=== PATIENT | male | born 1980 ===

== ENCOUNTER 2017-07-13 22:16 | Emergency (ER) | payer OTHER ==
[2017-07-13 23:58] VITALS: RESP 18
[2017-07-14 00:03] LABS: BASO % 0.5 % (0.0-2.0); EOS # 0.1 K/uL (0.0-0.7); EOS % 0.8 % (0.0-4.0); HEMATOCRIT 40.6 % (35.0-51.0); LYMPH # 1.4 K/uL (1.0-4.3); LYMPH % 18.1 % (20.0-40.0); MEAN CELL VOLUME 91.6 fl (80.0-94.0); MEAN CORPUSCULAR HEMOGLOBIN 29.9 pg (27.0-31.0); MEAN CORPUSCULAR HGB CONC 32.6 g/dL (33.0-37.0); MEAN PLATELET VOLUME 9.6 fl (7.2-11.7); MONO # 1.1 K/uL (0.0-0.8); MONO % 14.4 % (0.0-10.0); NEUT # 5.3 K/uL (1.8-7.0); NEUT % 66.2 % (50.0-75.0); RED CELL DISTRIBUTION WIDTH 13.2 % (11.5-14.5)
[2017-07-14 00:11] LABS: BLOOD UREA NITROGEN 14 mg/dl (9-20); CALCIUM 8.5 mg/dL (8.4-10.2); CARBON DIOXIDE 24 mmol/L (22-30); CHLORIDE 98 mmol/L (98-107); GFR AFRICAN-AMERICAN > 60; GLUCOSE,RANDOM 113 mg/dL (75-110); POTASSIUM 3.5 MMOL/L (3.6-5.0); SODIUM 131 mmol/l (132-148)
--- NOTE | 2017-07-14 00:13 | ED PDOC ---
HPI: General Adult Time Seen by Provider: 07/13/17 22:40 Chief Complaint (Nursing): Cough, Cold, Congestion Chief Complaint (Provider): Flu-Like Symptoms History Per: Patient History/Exam Limitations: no limitations Onset/Duration Of Symptoms: Other (x2 weeks) Have you had recent travel within the past 21 days to any of the following countries: [place], [place], [place] or [place]?: No Current Symptoms Are (Timing): Still Present Additional Complaint(s): 36 year old male presents to ED with complaints of flu-like symptoms x2 weeks and has no past medical history. (+) cough, fever, chest pain, body aches, and sore throat. Notes that symptoms were improving before suddenly returning, prompting ED visit. Confirms over the counter medication temporarily mitigated symptoms. PCP: None Past Medical History Reviewed: Historical Data, Nursing Documentation, Vital Signs Vital Signs: Last Vital Signs Temp 98.5 F 07/14/17 01:41 Pulse 82 07/14/17 01:41 Resp 18 07/14/17 01:41 BP 130/77 07/13/17 22:19 Pulse Ox 99 07/14/17 01:41 - Medical History PMH: No Chronic Diseases - Surgical History Surgical History: Appendectomy - Family History Family History: States: Other Other Family History: Mother from throat cancer - Social History Current smoker - smoking cessation education provided: No Ex-Smoker (has not smoked in the last 12 months): No Alcohol: None Drugs: Denies - Home Medications Home Medications: Ambulatory Orders Medication Instructions Recorded Amoxicillin 500 mg PO Q12 #14 tab 09/24/16 Famotidine [Pepcid] 20 mg PO Q12 #14 tab 09/24/16 Ondansetron ODT [Zofran ODT] 4 mg PO Q6 PRN #16 odt 09/24/16 Oseltamivir [Tamiflu] 75 mg PO BID #9 cap 09/24/16 - Allergies Allergies/Adverse Reactions: Allergies Allergy/AdvReac Type Severity Reaction Status Date / Time No Known Allergies Allergy Verified 09/24/16 20:19 Review of Systems ROS Statement: Except As Marked, All Systems Reviewed And Found Negative Constitutional: Positive for: Fever, Malaise ENT: Positive for: Throat Pain Cardiovascular: Positive for: Chest Pain Respiratory: Positive for: Cough Physical Exam - Reviewed Nursing Documentation Reviewed: Yes Vital Signs Reviewed: Yes - Physical Exam Appears: Positive for: Non-toxic. Negative for: Uncomfortable Skin: Positive for: Normal Color, Warm, Dry Eye Exam: Positive for: Normal appearance, EOMI, PERRL ENT: Positive for: Pharyngeal Erythema (mild). Negative for: Normal ENT Inspection Neck: Positive for: Normal Cardiovascular/Chest: Positive for: Regular Rate, Rhythm. Negative for: Murmur Respiratory: Positive for: Normal Breath Sounds. Negative for: Respiratory Distress Gastrointestinal/Abdominal: Positive for: Soft. Negative for: Tenderness Neurologic/Psych: Positive for: Alert, Oriented. Negative for: Motor/Sensory Deficits - Laboratory Results Result Diagrams: 07/13/17 23:35 07/13/17 23:35 - ECG O2 Sat by Pulse Oximetry: 98 (RA) Pulse Ox Interpretation: Normal Medical Decision Making Medical Decision Makin Initial impression: fever, cough, chest pain DDx: PNA, influenza Initial plan: * Labs * CXR * Acetaminophen 650mg PO * BCx * Influenza A B * Rapid strep * Re-eval Scribe Attestation: Documented by Aisha Lucas acting as a scribe for Gissel Pritchard MD. Scribe Attestation: All medical record entries made by the Scribe were at my direction and personally dictated by me. I have reviewed the chart and agree that the record accurately reflects my personal performance of the history, physical exam, medical decision making, and the department course for this patient. I have also personally directed, reviewed, and agree with the discharge instructions and disposition. Disposition - Clinical Impression Clinical Impression: Influenza - Patient ED Disposition Is Patient to be Admitted: No Doctor Will See Patient In The: Office Counseled Patient/Family Regarding: Studies Performed, Diagnosis, Need For Followup - Disposition Referrals: formerly [facility] [Outside] Disposition: Routine/Home Disposition Time: 01:45 Condition: GOOD Additional Instructions: Take your medications as instructed. Follow up with your PCP in 2-3 days. Instructions: Influenza (ED)
[2017-07-14 01:42] VITALS: PULSE 82
[2017-07-14 01:48] VITALS: O2SAT 98
[2017-07-14 02:32] VITALS: BP 129/76; TEMP 98.3
--- NOTE | 2017-07-14 05:56 | RAD ---
HISTORY: Cough, chest pain COMPARISON: No prior. TECHNIQUE: Chest PA and lateral FINDINGS: LUNGS: Left lower lobe infiltrate suspicious for pneumonia. PLEURA: No significant pleural effusion identified. No pneumothorax apparent. CARDIOVASCULAR: Normal. OSSEOUS STRUCTURES: No significant abnormalities. VISUALIZED UPPER ABDOMEN: Normal. OTHER FINDINGS: None. IMPRESSION: Left lower lobe pneumonia.
== END 2017-07-14 02:32 | disposition home or self-care (01) ==
LOC: H.ER 22:16
DX: J18.1 Lobar pneumonia, unspecified organism (principal); Z87.891 Personal history of nicotine dependence

== ENCOUNTER 2018-02-06 21:39 | Emergency (ER) | payer OTHER ==
[2018-02-06 21:59] VITALS: BP 112/71; PULSE 74; RESP 18; TEMP 98.3; O2SAT 99
--- NOTE | 2018-02-06 22:13 | ED PDOC ---
HPI: Back Time Seen by Provider: 02/06/18 22:01 Chief Complaint (Nursing): Back Pain Chief Complaint (Provider): Back Pain History Per: Patient, Family (brother at bedside.) History/Exam Limitations: no limitations Additional Complaint(s): Patient is a 37 year old male who presents to the ED for evaluation of atraumatic, lower back pain since this morning. Patient reports he woke up with the pain and notes he has a history of similar pain in the past, which comes and goes for the last ten years. Patient reports he took no medication prior to arrival but has been applying IcyHot at home with minimal relief. Pain worsens with movement, (-) radiation. 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 Patient denies any fever, chills, urinary symptoms, abdominal pain, chest pain, SOB, cough, nausea, vomiting, diarrhea, recent falls, incontinence, saddle anesthesia, weakness/numbness. PMD: None provided Past Medical History Reviewed: Historical Data, Nursing Documentation, Vital Signs Vital Signs: Last Vital Signs Temp 98.3 F 02/06/18 21:52 Pulse 74 02/06/18 21:52 Resp 18 02/06/18 21:52 BP 112/71 02/06/18 21:52 Pulse Ox 99 02/06/18 21:52 - Medical History PMH: No Chronic Diseases - Surgical History Surgical History: Appendectomy - Family History Family History: States: Unknown Family Hx - Social History Current smoker - smoking cessation education provided: No Alcohol: Social Drugs: Denies - Home Medications Home Medications: Ambulatory Orders Medication Instructions Recorded Amoxicillin 500 mg PO Q12 #14 tab 09/24/16 Famotidine [Pepcid] 20 mg PO Q12 #14 tab 09/24/16 Ondansetron ODT [Zofran ODT] 4 mg PO Q6 PRN #16 odt 09/24/16 Oseltamivir [Tamiflu] 75 mg PO BID #9 cap 09/24/16 Oseltamivir [Tamiflu] 75 mg PO BID #10 cap 07/14/17 Cyclobenzaprine [Cyclobenzaprine 10 mg PO Q8 PRN #12 tab 02/06/18 HCl] Naproxen 500 mg PO BID #20 tab 02/06/18 - Allergies Allergies/Adverse Reactions: Allergies Allergy/AdvReac Type Severity Reaction Status Date / Time No Known Allergies Allergy Verified 09/24/16 20:19 Review of Systems ROS Statement: Except As Marked, All Systems Reviewed And Found Negative Musculoskeletal: Positive for: Back Pain Physical Exam - Reviewed Nursing Documentation Reviewed: Yes Vital Signs Reviewed: Yes - Physical Exam Appears: Positive for: Well, Non-toxic, No Acute Distress Head Exam: Positive for: NORMOCEPHALIC Skin: Positive for: Normal Color, Warm, Dry Eye Exam: Positive for: EOMI, PERRL ENT: Positive for: Other (Mucus membranes moist. Airway patent (-) stridor.) Neck: Positive for: Painless ROM, Supple Cardiovascular/Chest: Positive for: Regular Rate, Rhythm Respiratory: Positive for: Normal Breath Sounds Gastrointestinal/Abdominal: Positive for: Bowel Sounds (x4), Soft. Negative for : Tenderness, Distended, Guarding Back: Positive for: Other (diffuse paralumbar tenderness (-) spasm (-) straight leg raise bilaterally.). Negative for: L CVA Tenderness, R CVA Tenderness, Vertebral Tenderness, Muscle Spasm Extremity: Positive for: Normal ROM. Negative for: Calf Tenderness Neurologic/Psych: Positive for: Alert, Oriented (x3), Gait (steady in ED). Negative for: Motor/Sensory Deficits, Aphasia, Facial Droop - ECG O2 Sat by Pulse Oximetry: 99 (RA) Pulse Ox Interpretation: Normal Medical Decision Making Medical Decision Making: Clinical Impression: Acute on chronic back pain Plan: -Toradol 30mg IM -Flexeril 10mg PO (Patient is not driving home) -Tramadol 50mg PO -Re-evaluation 2320 Patient sleeping comfortably in ED at this time. Upon waking patient, patient reports persistent back pain at this time. 5mg PO Valium ordered. 2345 On re-evaluation, patient reports improvement of symptoms. On exam, patient remains AAOx3, in no acute distress. On exam, neck is supple, lungs CTA, cardiac RRR, abdomen is soft and non-tender, neuro exam shows no focal findings. Ambulatory in ED with steady, unassisted gait. VSS, stable for discharge. Diagnostic results d/w the patient in great detail. Dx of acute on chronic back pain, lumbar muscle strain d/w the patient. Based on history, exam and diagnostic results plan will be for discharge and outpatient follow up. Advised to follow up with primary care physician/clinic/referred provider in 1- 2 days without fail. Advised to take medication as prescribed. Return to the emergency room at any time for any new or worsening symptoms. Patient states he fully agrees with and understands discharge instructions. States that he agrees with the plan and disposition. Verbalized and repeated discharge instructions and plan. I have given the patient opportunity to ask any additional questions. Disposition - Clinical Impression Clinical Impression: Musculoskeletal back pain, Low back pain - Patient ED Disposition Is Patient to be Admitted: No Counseled Patient/Family Regarding: Studies Performed, Diagnosis, Need For Followup, Rx Given - Disposition Referrals: [facility] [Outside] Jake Graham MD [Staff Provider] - Disposition: Routine/Home Disposition Time: 23:47 Condition: STABLE Additional Instructions: FOLLOW UP WITH CLINIC/ORTHO IN 1-2 DAYS FOR FURTHER EVALUATION RETURN TO ED WITH ANY NEW OR WORSENING SYMPTOMS TAKE MEDICATION PRESCRIBED NEEDED FOR SYMPTOMS Prescriptions: Cyclobenzaprine [Cyclobenzaprine HCl] 10 mg PO Q8 PRN #12 tab PRN Reason: Muscle Spasm Naproxen 500 mg PO BID #20 tab Instructions: Low Back Pain (DC), Muscle and Bone Pain (DC), Lumbar Muscle Strain, Do I Need an X-ray (or Other Test) for Low Back Pain? Forms: Potential (Kyrgyz) Print Language: COLOMBIAN - POA Present On Arrival: None
== END 2018-02-06 23:55 | disposition home or self-care (01) ==
LOC: H.ER 21:39
DX: M54.5 Low back pain (principal); G89.29 Other chronic pain
CPT/HCPCS: 96372; 99282; J1885